=== PATIENT | male | born 1945 | race Caucasian/White ===

== ENCOUNTER 2016-09-29 11:28 | Emergency (ER) | payer MEDICARE, OTHER ==
[2016-09-29 13:56] LABS: BILIRUBIN NEGATIVE (NEGATIVE); BLOOD NEGATIVE Ery/uL (NEGATIVE); CLARITY CLEAR (CLEAR); COLOR YELLOW (YELLOW); GLUCOSE (U) NORMAL (NORMAL); KETONE (U) NEGATIVE (NEGATIVE); LEUKOCYTES NEGATIVE Leu/uL (NEGATIVE); NITRITE NEGATIVE (NEGATIVE); PROTEIN NEGATIVE (NEGATIVE); SPECIFIC GRAVITY 1.015 (1.001-1.030); UROBILINOGEN 0.2 mg/dL (0.2-1.0)
[2016-09-29 14:19] LABS: BASOPHIL 0.4 % (0-2); EOSINOPHIL 1.1 % (0-7); HGB 9.7 g/dl (13.2-18.0); LYMPHOCYTE 29.8 % (15-48); MCH 32.1 pg (25.0-31.0); MCHC 33.4 g/dL (32.0-36.0); MONOCYTE 10.2 % (0-12); MPV 8.5 fL (6.0-9.5); NEUTROPHIL 58.5 % (41-80); PLT 189 K/uL (150-400); RBC 3.02 M/uL (4.70-6.00); RDW 20.9 % (11.5-14.0)
[2016-09-29 14:33] LABS: LACTIC ACID 1.8 mmol/L (0.5-2.2)
[2016-09-29 14:59] LABS: BILIRUBIN - TOTAL 0.5 mg/dL (0.1-1.0); CREATININE 0.7 mg/dL (0.7-1.2); GLOBULIN (CALCULATION) 3.1 g/dL (2.2-4.2); POTASSIUM 4.1 mmol/L (3.5-5.1); TOTAL PROTEIN 6.1 g/dL (6.4-8.3)
== END 2016-09-29 17:07 | disposition home or self-care (01) ==
LOC: FER 11:28
PROVIDERS: Internal Medicine
DX: K59.00 Constipation, unspecified (principal); R91.8 Other nonspecific abnormal finding of lung field; R11.2 Nausea with vomiting, unspecified; I10 Essential (primary) hypertension; K21.9 Gastro-esophageal reflux disease without esophagitis; Z85.01 Personal history of malignant neoplasm of esophagus
CPT/HCPCS: 36415; 74022; 80053; 81003; 82150; 83605; 83690; 85025; 87804; 87899; 93005; J2405

== ENCOUNTER 2016-10-10 23:51 | Inpatient (IN) | payer MEDICARE, OTHER ==
[2016-10-11 00:25] LABS: BASOPHIL 0.3 % (0-2); EOSINOPHIL 1.5 % (0-7); HCT 35.2 % (42.0-52.0); HGB 11.6 g/dl (13.2-18.0); LYMPHOCYTE 23.4 % (15-48); MCH 32.1 pg (25.0-31.0); MCV 97.5 fL (78.0-100.0); MONOCYTE 11.6 % (0-12); MPV 9.1 fL (6.0-9.5); NEUTROPHIL 63.2 % (41-80); PLT 238 K/uL (150-400); RBC 3.61 M/uL (4.70-6.00); RDW 18.9 % (11.5-14.0)
[2016-10-11 00:35] LABS: INR 1.16 (0.9-1.2); PROTHROMBIN TIME 14.4 SECONDS (11.7-14.0)
[2016-10-11 00:36] LABS: PTT 38.2 SECONDS (23.2-31.4)
[2016-10-11 00:37] LABS: D-DIMER 2.9 ug/mLFEU (0.00-0.41)
[2016-10-11 00:40] LABS: LACTIC ACID 1.9 mmol/L (0.5-2.2)
[2016-10-11 00:43] LABS: ALBUMIN 3.3 g/dL (3.4-4.8); BILIRUBIN - TOTAL 0.6 mg/dL (0.1-1.0); CREATININE 0.7 mg/dL (0.7-1.2); GLOBULIN (CALCULATION) 4.4 g/dL (2.2-4.2); POTASSIUM 4.1 mmol/L (3.5-5.1); TOTAL PROTEIN 7.7 g/dL (6.4-8.3)
[2016-10-11 00:44] LABS: TROPONIN T < 0.010 ng/mL
[2016-10-11 00:45] LABS: PRO-BNP 372 pg/mL (0-125)
[2016-10-11 02:59] LABS: BILIRUBIN NEGATIVE (NEGATIVE); BLOOD NEGATIVE Ery/uL (NEGATIVE); CLARITY HAZY (CLEAR); COLOR YELLOW (YELLOW); GLUCOSE (U) NORMAL (NORMAL); KETONE (U) NEGATIVE (NEGATIVE); LEUKOCYTES NEGATIVE Leu/uL (NEGATIVE); NITRITE NEGATIVE (NEGATIVE); PROTEIN TRACE (LOW) mg/dL (NEGATIVE); pH 7.5 (5.0-9.0)
[2016-10-11 03:13] LABS: AMORPHOUS URATES CRYSTALS MODERATE; BACTERIA 2+; CALCIUM OXALATE CRYSTALS TRACE; SQUAMOUS EPITHELIAL CELLS RARE
[2016-10-13 18:51] LABS: HCT 29.1 % (42.0-52.0); HGB 9.5 g/dl (13.2-18.0); MCH 31.9 pg (25.0-31.0); MCHC 32.6 g/dL (32.0-36.0); MCV 97.7 fL (78.0-100.0); MPV 8.2 fL (6.0-9.5); RBC 2.98 M/uL (4.70-6.00); RDW 17.9 % (11.5-14.0); WBC 5.6 K/uL (4.0-10.5)
[2016-10-13 19:22] LABS: CREATININE 0.6 mg/dL (0.7-1.2); MAGNESIUM 1.7 mg/dL (1.40-2.10); POTASSIUM 3.8 mmol/L (3.5-5.1)
[2016-10-14 05:48] LABS: HCT 27.3 % (42.0-52.0); HGB 8.9 g/dl (13.2-18.0); MCH 32.1 pg (25.0-31.0); MCHC 32.6 g/dL (32.0-36.0); MCV 98.6 fL (78.0-100.0); MPV 9.1 fL (6.0-9.5); RBC 2.77 M/uL (4.70-6.00); RDW 17.8 % (11.5-14.0); WBC 5.3 K/uL (4.0-10.5)
[2016-10-14 06:36] LABS: ALBUMIN 2.5 g/dL (3.4-4.8); BILIRUBIN - TOTAL 0.3 mg/dL (0.1-1.0); CREATININE 0.6 mg/dL (0.7-1.2); GLOBULIN (CALCULATION) 2.8 g/dL (2.2-4.2); POTASSIUM 3.8 mmol/L (3.5-5.1); TOTAL PROTEIN 5.3 g/dL (6.4-8.3)
[2016-10-15 02:08] LABS: HCT 29.1 % (42.0-52.0); HGB 9.4 g/dl (13.2-18.0); MCH 31.3 pg (25.0-31.0); MCHC 32.3 g/dL (32.0-36.0); RDW 17.6 % (11.5-14.0); WBC 6.6 K/uL (4.0-10.5)
[2016-10-15 02:27] LABS: CREATININE 0.9 mg/dL (0.7-1.2); POTASSIUM 3.7 mmol/L (3.5-5.1)
[2016-10-15] MEDS ORDERED: VALIUM5 MG PO (12:12)
[2016-10-15] MEDS ORDERED: OSMOLITE 1.51000 ML PO (12:13)
[2016-10-15] MEDS ORDERED: AMOX TR-K400 MG/5 M PEG (12:14)
== END 2016-10-15 16:00 | disposition hospice, home (50) | DRG 194 ==
LOC: FER 23:51 → FMS 10-11 07:20
PROVIDERS: Emergency Medicine Emergency Medical Services; Internal Medicine; ADMIT Internal Medicine
DX: J18.9 Pneumonia, unspecified organism (principal); C15.5 Malignant neoplasm of lower third of esophagus; N39.0 Urinary tract infection, site not specified; D63.0 Anemia in neoplastic disease; R13.10 Dysphagia, unspecified; E86.0 Dehydration; I10 Essential (primary) hypertension; E55.9 Vitamin D deficiency, unspecified; Y95 Nosocomial condition; Z66 Do not resuscitate; I49.9 Cardiac arrhythmia, unspecified; Z87.891 Personal history of nicotine dependence; Z82.3 Family history of stroke; Z80.3 Family history of malignant neoplasm of breast; Z80.42 Family history of malignant neoplasm of prostate
CPT/HCPCS: 36415; 36600; 71010; 71275; 80048; 80053; 80074; 80202; 81001; 82803; 83605; 83735; 83880; 84484; 85025; 85379; 85610; 85730; 86140; 86403; 87040; 87077; 87088; 87205; 87804; 87899; 92526; 93005; 97110; 97116; 97163; 97166; 97530; 97530-GP; 97535; C9113; J0131; J0692; J1100; J1956; J2543; J2765; J3370; Q9967